=== PATIENT | female | born 1950 | race Caucasian/White ===

== ENCOUNTER 2019-06-12 20:09 | Emergency (ER) | payer BC ==
[~2019-06-12] VITALS: Ht 167.6 cm; Wt 57.2 kg
--- NOTE | 2019-06-12 20:30 | NUR ---
Dr. Medellin at bedside for MSE
[2019-06-12] MEDS ORDERED: CLINDAMYCIN HCL 150 MG CAPSULE ONE (21:56)
[2019-06-12] MEDS ORDERED: CLINDAMYCIN HCL 150 MG CAPSULE PO ONE (22:00)
--- NOTE | 2019-06-12 22:01 | NUR ---
Patient discharged to home in stable conditon. Written and verbal after care instructions given. Patient verbalizes understanding of instructions. Walked out of ER with no distress noted.
[2019-06-12 22:02] VITALS: BP 138/77
== END 2019-06-12 22:02 | disposition home or self-care (01) ==
LOC: ER 20:13
DX: L03.115 Cellulitis of right lower limb (principal)
CPT/HCPCS: A4663